=== PATIENT | female | born 1955 | race Caucasian/White ===

== ENCOUNTER → 2016-12-04 | Outpatient (CLI) | payer MEDICARE, OTHER ==
[2016-12-04 15:58] VITALS: BP 146/77; PULSE 65; TEMP 99.7; BMI 37.4
--- NOTE | 2016-12-15 19:52 | P.PN ---
Progress Note - Text DATE OF SERVICE: 12/04/2016 CHIEF COMPLAINT: Bariatric evaluation. HISTORY OF PRESENT ILLNESS: Elvi Sharp is a 61-year-old female with prior history of adjustable gastric band. She initially presented to the bariatric program in the past year. Weight at that time was 235 pounds. For a 5-foot 5-inch frame, her ideal body weight is 149 pounds. Today she comes in weighing 225 pounds. She has maintained approximately 10-pound weight loss. Body mass was reduced from 39.2 down to 37.4. Separately, she is accompanied by her sister, who also reports that her eating habits are mostly junk food and snacking. Separately, she still reports chronic abdominal pain from her previous ventral hernia repair. Now she presents for further evaluation and management. PAST MEDICAL HISTORY: 1. Morbid obesity. 2. Gastroesophageal reflux disease. 3. Hypertension. 4. Depression. 5. Dyslipidemia. 6. Asthma. 7. Osteoarthritis of the bilateral hips. 8. Osteoarthritis of the bilateral knees. 9. Thyroid disorder. PAST SURGICAL HISTORY: 1. Placement of adjustable gastric band, 2007 2. Abdominal ventral hernia repair, 2014. 3. Adrenal gland removal. MEDICATIONS: 1. Tramadol. 2. Klonopin. 3. Singulair. 4. Inderal. 5. Celexa. 6. Lipitor. 7. ProAir. 8. Tylenol PM. ALLERGIES: DEMEROL. SOCIAL HISTORY: Lifelong tobacco user. FAMILY HISTORY: Uterine cancer including breast cancer and thyroid cancer and also has glaucoma in the family. REVIEW OF SYSTEMS: GENITOURINARY: Prior history and a tract infections. CONSTITUTIONAL: Weight at that time was 235 pounds. For a 5-foot 5-inch frame, her ideal body weight is 149 pounds. Today she comes in weighing 225 pounds. She has maintained approximately 10-pound weight loss. Body mass was reduced from 39.2 down to 37.4. GASTROINTESTINAL: Has gastroesophageal reflux disease including presbyesophagus. Also reports constipation. HEENT: Denies any troubles with vision or hearing. History of dysphagia. ENDOCRINE: Now diagnosed with diabetes. History of thyroid disorder. RESPIRATORY: Has asthma. Denies any recent pneumonia. CARDIOVASCULAR: No reports of myocardial infarction as of recent. Does have a history of chest pain and prior history of angina. MUSCULOSKELETAL: Has osteoarthritis of the bilateral hips including lower back. PSYCH: History of anxiety including depression. NEURO: No reports of stroke or seizure disorders. PHYSICAL EXAM: VITAL SIGNS: 99.7, 65, 146/77, 18. Height of 5 feet 5 inches, weight of 225 pounds. Body mass index 37.4. ABDOMEN: Obese. No peritonitis. No erythema along the abdomen. GENERAL: Well-developed female in no acute distress. HEENT: Poor dentition. Extraocular movements grossly intact. Moist buccal mucosa. NECK: Supple without lymphadenopathy. NEURO: No focal or lateralizing signs. CHEST: Non-labored respirations and equal bilateral excursions. CARDIOVASCULAR: Regular rate and rhythm. Palpable 2+ radial pulses. MUSCULOSKELETAL: No clubbing, cyanosis or edema. PSYCH: Appropriate affect. Alert and oriented to person, place and time. STUDIES: Previous CT of the abdomen and pelvis was obtained from an outside institution. The patient reports recurrent ventral hernia. ASSESSMENT: 1. Morbid obesity due to excess calories. 2. Body mass index down from 39.2 down to 37.4. 3. New diagnosis of diabetes type 2 [id number]. 4. Bilateral lower abdominal pain. 5. Dysuria. 6. History of gastric ulcer. 7. Complications from adjustable gastric band. 8. Gastroesophageal reflux disease. 9. Vitamin D deficiency. 10. Hypertension with history of cardiomyopathy. 11. Depression without suicidal ideation or psychosis. 12. Dyslipidemia. 13. History of adjustable gastric band. 14. History of chronic gastritis. 15. Chronic abdominal pain. 16. Previous history of ventral hernia. 17. Dietary surveillance and counseling. PLAN: 1. She still has concerns about weight loss procedures; however, from her dietary habits, she is eating high carbohydrate foods and high caloric foods, which impairs weight loss. 2. Recommend evaluation with the bariatric dietitian. 3. At this time, as she has chronic abdominal pain, I have recommended no removal of her adjustable gastric band. 4. She is evaluating for a gastrectomy-type procedures, of which at this time I strongly I recommend holding off. 5. Recommend followup after workup from additional providers of her chronic pelvic pain as well.
== END | disposition home or self-care (01) ==
LOC: BARWHC3 14:43
PROVIDERS: ATTEND Surgery Plastic and Reconstructive Surgery
DX: Z48.815 Encounter for surgical aftercare following surgery on the digestive system (principal); E66.01 Morbid (severe) obesity due to excess calories; Z68.37 Body mass index [BMI] 37.0-37.9, adult; R10.9 Unspecified abdominal pain; Z79.899 Other long term (current) drug therapy; Z98.84 Bariatric surgery status
CPT/HCPCS: 99211

== ENCOUNTER → 2017-03-27 | Outpatient (CLI) | payer MEDICARE, OTHER ==
[2017-03-27 12:34] VITALS: BP 118/57; PULSE 61; RESP 14; TEMP 98.5; BMI 37.5
--- NOTE | 2017-05-16 11:16 | P.PN ---
Progress Note - Text DATE OF SERVICE: 03/27/2017 CHIEF COMPLAINT: History of abdominal pain. HISTORY OF PRESENT ILLNESS: Elvi Sharp is a 61-year-old female with a previous history of adjustable gastric band. At her height of 5 feet 5 inches she started the year weighing 235 pounds. Today she comes in weighing 225 pounds. She has maintained a 10-pound weight loss. Body mass index is reduced from 39.2 down to 37.6. She is still 76 pounds overweight. She had been prescribed Reglan which she reports her abdominal pain has improved. She still reports moderate urological symptoms including chronic urgency with urination. Separately, she has history of a splenic aneurysm. Now she presents for further evaluation and management. PAST MEDICAL HISTORY: 1. Morbid obesity. 2. Gastroesophageal reflux disease. 3. Hypertension. 4. Depression. 5. Dyslipidemia. 6. Asthma. 7. Osteoarthritis of the bilateral hips. 8. Osteoarthritis of the bilateral knees. 9. Thyroid disorder. 10. Splenic artery aneurysm. PAST SURGICAL HISTORY: 1. Placement of adjustable gastric band, 2007 2. Abdominal ventral hernia repair, 2014. 3. Adrenal gland removal. MEDICATIONS: 1. Tramadol. 2. Klonopin. 3. Singulair. 4. Inderal. 5. Celexa. 6. Lipitor. 7. ProAir. 8. Tylenol PM. ALLERGIES: DEMEROL. SOCIAL HISTORY: Lifelong tobacco user. FAMILY HISTORY: Uterine cancer including breast cancer and thyroid cancer and also has glaucoma in the family. REVIEW OF SYSTEMS: CONSTITUTIONAL: Maintained weight loss 10 pounds. Body mass index reduced from 39.2 down to 37.6. Weight at that time was 235 pounds. For a 5- foot 5-inch frame, her ideal body weight is 149 pounds. Today she comes in weighing 225 pounds. She has maintained approximately 10-pound weight loss. GENITOURINARY: Has frequent urination. Prior history of urinary tract infections. GASTROINTESTINAL: Has gastroesophageal reflux disease including presbyesophagus. Also reports constipation. HEENT: Denies any troubles with vision or hearing. History of dysphagia. ENDOCRINE: Now diagnosed with diabetes. History of thyroid disorder. RESPIRATORY: Has asthma. Denies any recent pneumonia. CARDIOVASCULAR: No reports of myocardial infarction as of recent. Does have a history of chest pain and prior history of angina. Splenic artery aneurysm. MUSCULOSKELETAL: Has osteoarthritis of the bilateral hips including lower back. PSYCH: History of anxiety including depression. NEURO: No reports of stroke or seizure disorders. PHYSICAL EXAM: VITAL SIGNS: 98.5, 61, 14, 118/57; 5 feet 5 inches, 225 pounds. Body mass index 37.6. ABDOMEN: Soft. Tenderness noted along the suprapubic area including epigastrium. No erythema along lap band port site. GENERAL: Well-developed female in no acute distress. HEENT: Poor dentition. Extraocular movements grossly intact. Moist buccal mucosa. NECK: Supple without lymphadenopathy. NEURO: No focal or lateralizing signs. CHEST: Non-labored respirations and equal bilateral excursions. CARDIOVASCULAR: Regular rate and rhythm. Palpable 2+ radial pulses. MUSCULOSKELETAL: No clubbing, cyanosis or edema. PSYCH: Appropriate affect. Alert and oriented to person, place and time. ASSESSMENT: 1. Morbid obesity due to excess calories. 2. Body mass index reduced from 39.2 down to 37.6. 3. Diabetes type 2 [id number]. 4. Bilateral lower abdominal pain. 5. Dysuria. 6. History of gastric ulcer. 7. Complications from adjustable gastric band. 8. Gastroesophageal reflux disease. 9. Vitamin D deficiency. 10. Hypertension with history of cardiomyopathy. 11. Depression without suicidal ideation or psychosis. 12. Dyslipidemia. 13. History of adjustable gastric band. 14. History of chronic gastritis. 15. Chronic abdominal pain. 16. Previous history of ventral hernia. 17. Dietary surveillance and counseling. 18. History of splenic artery aneurysm. 19. Urinary urgency. PLAN: 1. She is still pending evaluation with a vascular surgeon as she will need repair of her splenic artery aneurysm. 2. Also recommend a CT of the abdomen and pelvis for further evaluation and management. 3. I have discussed with her that any additional bariatric surgery is on hold as she has more pressing issues such as an aneurysm of the abdomen. 4. Recommendi referral to urology for history of chronic urinary retention as well as urgency.
== END | disposition home or self-care (01) ==
LOC: BARWHC3 10:28
PROVIDERS: ATTEND Surgery Plastic and Reconstructive Surgery
DX: Z48.815 Encounter for surgical aftercare following surgery on the digestive system (principal); E66.01 Morbid (severe) obesity due to excess calories; Z68.37 Body mass index [BMI] 37.0-37.9, adult; R10.84 Generalized abdominal pain; Z98.84 Bariatric surgery status; R35.0 Frequency of micturition; I72.8 Aneurysm of other specified arteries
CPT/HCPCS: 99211

== ENCOUNTER → 2017-05-26 | Outpatient (CLI) | payer MEDICARE, OTHER ==
--- NOTE | 2017-05-26 12:21 | CT ---
EXAMINATION TYPE: CT abdomen wo con DATE OF EXAM: 05/26/2017 HISTORY: Mesh erosion at umbilical hernia site with pain for 8 months per patient. Generalized abdomi nal pain and pulsatile mass per order. CT DLP: 929.3 mGycm. Automated Exposure Control for Dose Reduction was Utilized. TECHNIQUE: CT scan of the abdomen is performed with oral but without IV contrast. COMPARISON: CT abdomen February 08, 2010 FINDINGS: Within the limitations of a non-contrast study, the following observations are made. LUNG BASES: No significant abnormality is appreciated. LIVER/GB: Cholecystectomy clips are redemonstrated. Liver is slightly small and lobulated but not sig nificantly changed from prior. PANCREAS: No significant abnormality is seen. SPLEEN: There has been interval coil embolization of splenic artery aneurysm with streak artifact fro m multiple coils seen at level of splenic hilum making evaluation at this level suboptimal. ADRENALS: No significant abnormality is seen. KIDNEYS: Surgical clips lateral to left kidney are redemonstrated. Cortical scarring is seen. There i s 4 mm nonobstructing calculus mid pole level on axial image 22. There is 2 mm nonobstructing calculu s lower pole level right kidney on coronal image 63. BOWEL: Lap band position is stable just below diaphragm. Contrast is noted in nondistended stomach an d proximal small bowel loops which are not dilated. Fecal material is seen in nondistended colon. LYMPH NODES: No greater than 1cm abdominal lymph nodes are appreciated. OSSEOUS STRUCTURES: Exaggerated curvature is seen. There is prominent multilevel spurring. There is m ild to moderate compression L1 level presumed chronic most prominent anteriorly. OTHER: In lower anterior abdominal wall there is partial visualization of sutures from ventral wall h ernia repair surgery. Superior to this no significant recurrent ventral wall hernia is identified. IMPRESSION: Only partial visualization of suspected ventral wall hernia in the lower abdomen/upper pe lvis midline. No suspicious ventral wall hernia superior to this in the abdomen is identified.
== END | disposition home or self-care (01) ==
LOC: RADCTMAIN 11:09
PROVIDERS: ATTEND Surgery Plastic and Reconstructive Surgery
DX: R10.84 Generalized abdominal pain (principal); R22.2 Localized swelling, mass and lump, trunk
CPT/HCPCS: 74150

== ENCOUNTER → 2017-06-04 | Outpatient (CLI) | payer MEDICARE, OTHER ==
[2017-06-04 13:42] VITALS: BP 151/69; PULSE 65; RESP 16; TEMP 98.5; BMI 39.5
--- NOTE | 2017-06-28 14:17 | P.PN ---
Progress Note - Text DATE OF SERVICE: 06/04/2017 CHIEF COMPLAINT: History of adjustable gastric band. HISTORY OF PRESENT ILLNESS: Elvi Sharp is a 61-year-old female with a previous history of adjustable gastric band. She has history of chronic abdominal pain. She is status post coiling of the aneurysm of the abdomen. She still reports abdominal pain. She has history of diarrhea including constipation. She reports pain on the right lower pelvis. She is seeking another bariatric procedure. At her height of 5 feet 5 inches, she weighed 235 pounds. Today she comes in weighing 237 pounds. Body mass index is 39.5. She is 88 pounds overweight. Her ideal body weight is 149 pounds. PAST MEDICAL HISTORY: 1. Morbid obesity. 2. Gastroesophageal reflux disease. 3. Hypertension. 4. Depression. 5. Dyslipidemia. 6. Asthma. 7. Osteoarthritis of the bilateral hips. 8. Osteoarthritis of the bilateral knees. 9. Thyroid disorder. 10. Splenic artery aneurysm. PAST SURGICAL HISTORY: 1. Placement of adjustable gastric band, 2007 2. Abdominal ventral hernia repair, 2014. 3. Adrenal gland removal. MEDICATIONS: 1. Tramadol. 2. Klonopin. 3. Singulair. 4. Inderal. 5. Celexa. 6. Lipitor. 7. ProAir. 8. Tylenol PM. ALLERGIES: DEMEROL. SOCIAL HISTORY: Lifelong tobacco user. FAMILY HISTORY: Uterine cancer including breast cancer and thyroid cancer and also has glaucoma in the family. REVIEW OF SYSTEMS: CONSTITUTIONAL: At her height of 5 feet 5 inches, she weighed 235 pounds. Today she comes in weighing 237 pounds. Body mass index is 39.5. She is 88 pounds overweight. Her ideal body weight is 149 pounds. GENITOURINARY: Has frequent urination. Prior history of urinary tract infections. GASTROINTESTINAL: Has gastroesophageal reflux disease including presbyesophagus. Also reports constipation. She reports diarrhea. HEENT: Denies any troubles with vision or hearing. History of dysphagia. ENDOCRINE: Now diagnosed with diabetes. History of thyroid disorder. RESPIRATORY: Has asthma. Denies any recent pneumonia. CARDIOVASCULAR: No reports of myocardial infarction as of recent. Does have a history of chest pain and prior history of angina. Splenic artery aneurysm. MUSCULOSKELETAL: Has osteoarthritis of the bilateral hips including lower back. PSYCH: History of anxiety including depression. NEURO: No reports of stroke or seizure disorders. PHYSICAL EXAM: VITAL SIGNS: 5 feet 5 inches, 235 pounds, Body mass index 39.5. Vital Signs Temp 98.5 F 06/04/17 13:40 Pulse 65 06/04/17 13:40 Resp 16 06/04/17 13:40 BP 151/69 06/04/17 13:40 Pulse Ox ABDOMEN: Soft. Nondistended. Tenderness along the right lower abdomen. No peritonitis. GENERAL: Well-developed female in no acute distress. HEENT: Poor dentition. Extraocular movements grossly intact. Moist buccal mucosa. NECK: Supple without lymphadenopathy. NEURO: No focal or lateralizing signs. CHEST: Non-labored respirations and equal bilateral excursions. CARDIOVASCULAR: Regular rate and rhythm. Palpable 2+ radial pulses. MUSCULOSKELETAL: No clubbing, cyanosis or edema. PSYCH: Appropriate affect. Alert and oriented to person, place and time. ASSESSMENT: 1. Morbid obesity due to excess calories. 2. Body mass index 39.5. 3. Diabetes type 2 [id number]. 4. Bilateral lower abdominal pain. 5. Dysuria. 6. History of splenic aneurysm. 7. Complications from adjustable gastric band. 8. Gastroesophageal reflux disease. 9. Vitamin D deficiency. 10. Hypertension with history of cardiomyopathy. 11. Depression without suicidal ideation or psychosis. 12. Dyslipidemia. 13. History of adjustable gastric band. 14. Chronic abdominal pain. 15. Previous history of ventral hernia. 16. Dietary surveillance and counseling. PLAN: 1. Recommend CT of the abdomen and pelvis. 2. She reports chronic abdominal pain however recommend hold on any new bariatric procedures. 3. She has history of moderate carbohydrate intake and recommended dietitian evaluation. 4. She is also looking into a band removal which is pending at this time of her decision. 5. May benefit from upper and lower endoscopy for history of change in bowel habits and abdominal pain. 6. Also recommend bariatric metabolic panel.
== END | disposition home or self-care (01) ==
LOC: BARWHC3 12:27
PROVIDERS: ATTEND Surgery Plastic and Reconstructive Surgery
DX: Z48.815 Encounter for surgical aftercare following surgery on the digestive system (principal); E66.01 Morbid (severe) obesity due to excess calories; E11.8 Type 2 diabetes mellitus with unspecified complications; R30.0 Dysuria; R10.31 Right lower quadrant pain; R10.32 Left lower quadrant pain; E55.9 Vitamin D deficiency, unspecified; K21.9 Gastro-esophageal reflux disease without esophagitis; I10 Essential (primary) hypertension; F32.9 Major depressive disorder, single episode, unspecified; E78.5 Hyperlipidemia, unspecified; K43.9 Ventral hernia without obstruction or gangrene; Z68.39 Body mass index [BMI] 39.0-39.9, adult; Z98.84 Bariatric surgery status; Z79.899 Other long term (current) drug therapy; Z88.5 Allergy status to narcotic agent
CPT/HCPCS: 99211

== ENCOUNTER → 2017-09-03 | Outpatient (CLI) | payer MEDICARE, OTHER ==
[2017-09-03 10:27] LABS: ALT 35 U/L (9-52); AST 24 U/L (14-36); Alkaline Phosphatase 97 U/L (38-126); Anion Gap 10 mmol/L; Blood Urea Nitrogen 22 mg/dL (7-17); Calcium 9.6 mg/dL (8.4-10.2); Carbon Dioxide 28 mmol/L (22-30); Chloride 103 mmol/L (98-107); Cholesterol 178 mg/dL (<200); Creatine Kinase 35 U/L (30-135); Glucose 102 mg/dL (74-99); HDL Cholesterol 53 mg/dL (40-60); Non-African American GFR(MDRD) >60 (>60 ml/min/1.73 sqM); Potassium 4.4 mmol/L (3.5-5.1); Sodium 141 mmol/L (137-145); Total Bilirubin 0.4 mg/dL (0.2-1.3); Total Protein 7.2 g/dL (6.3-8.2); Uric Acid 5.5 mg/dL (3.7-7.4)
[2017-09-03 10:46] LABS: Basophils # (A) 0.1 k/uL (0-0.2); Basophils % (A) 1 %; CH 30.4; CHCM 32.3; Eosinophils # (A) 0.2 k/uL (0-0.7); Eosinophils % (A) 1 %; HCT 45.3 % (34.0-46.0); HDW 2.48; HGB 14.4 gm/dL (11.4-16.0); Luc # (Auto) 0.33; Luc % (Auto) 3; Lymphocytes % (A) 17 %; MCH 30.1 pg (25.0-35.0); MCHC 31.8 g/dL (31.0-37.0); MCV 94.7 fL (80.0-100.0); Mean Platelet Volume 6.5; Monocytes # (A) 0.8 k/uL (0-1.0); Monocytes % (A) 7 %; Neutrophils % (A) 71 %; RBC 4.78 m/uL (3.80-5.40); RDW 13.3 % (11.5-15.5); WBC 11.3 k/uL (3.8-10.6); WBC (Perox) 11.53
[2017-09-03 10:50] LABS: Appearance,Urine Clear (Clear); Bilirubin,Urine Negative (Negative); Glucose,Urine (UA) 3+ (Negative); Ketones,Urine Negative (Negative); Leukocyte Esterase,Urine Negative (Negative); Nitrite,Urine Negative (Negative); Protein,Urine Negative (Negative); Specific Gravity,Urine 1.019 (1.001-1.035); UA Billing (MACRO vs. MICRO) CHEM; Urobilinogen,Urine <2.0 mg/dL (<2.0)
[2017-09-03 12:10] LABS: Hemoglobin A1C 6.4 % (4.2-6.1)
[2017-09-03 16:15] LABS: Urine Creatinine 85.7 mg/dL
== END | disposition home or self-care (01) ==
LOC: LABWHC1 09:20
PROVIDERS: ATTEND Internal Medicine
DX: E04.2 Nontoxic multinodular goiter (principal); D51.3 Other dietary vitamin B12 deficiency anemia; E78.00 Pure hypercholesterolemia, unspecified; E11.9 Type 2 diabetes mellitus without complications; J45.909 Unspecified asthma, uncomplicated
CPT/HCPCS: 36415; 80053; 80061; 81003; 82043; 82306; 82550; 82570; 82607; 82746; 83036; 84439; 84443; 84550; 85025

== ENCOUNTER → 2017-09-03 | Outpatient (CLI) | payer MEDICARE, OTHER ==
--- NOTE | 2017-09-03 12:58 | BD ---
EXAMINATION TYPE: MG DEXA axial skeleton. DATE OF EXAM: 09/03/2017 Comparison: none CLINICAL HISTORY: disorder of bone Height: 5'5 Weight: 243 FRAX RISK QUESTIONS: Alcohol (3 or more units per day): no Family History (Parent hip fracture): no Glucocorticoids (More than 3mos): yes (Ex: prednisone, prednisolone, methylprednisolone, dexamethasone, and hydrocortisone). History of Fracture in Adulthood: no Secondary Osteoporosis: 1. Type 1 Diabetes: no 2. Hyperthyroidism: no 3. Menopause before 45: yes 4. Malnutrition: no 5. Chronic liver disease: no Rheumatoid Arthritis: no Current Tobacco Use: no RISK FACTORS HISTORY OF: Active: Diet low in dairy products/other sources of calcium: Postmenopausal woman: Frequent falls: MEDICATIONS: Additional Medications: blood pressure, cholesterol, type 2 diabetes, asthma Additional History: EXAM MEASUREMENTS: Bone mineral densitometry was performed using the [employer] System. Bone mineral density as measured about the Lumbar spine is: ----- L1-L4(G/cm2): 1.603 T Score Values are as follows: ----- L2: 4.1 ----- L3: 4.6 ----- L4: 1.0 ----- L1-L4: 3.5 Bone mineral density about the R hip (g/cm2): 1.058 Bone mineral density about the L hip (g/cm2): 0.854 T Score values are as follows: -----R Neck: 0.1 -----L Neck: -1.3 -----R Total: 0.0 -----L Total: 0.3 IMPRESSION: Osteopenia (T Score between -2.5 and -1 ) as noted by T score values: Left hip There is slightly increased risk of fracture and the patient may be considered for treatment. Re-Screen 2-5 years. NOTE: T-SCORE=SD OF THE YOUNG ADULT MEAN.
== END | disposition home or self-care (01) ==
LOC: RADBDWWP 08:41
PROVIDERS: ATTEND Internal Medicine
DX: M85.88 Other specified disorders of bone density and structure, other site (principal)
CPT/HCPCS: 77080